=== PATIENT | female | born 1950 | race Caucasian/White ===

== ENCOUNTER 2018-05-13 14:45 | Emergency (ER) | payer OTHER ==
[~2018-05-13] VITALS: Ht 157.5 cm; Wt 77.1 kg
[2018-05-13 15:11] VITALS: BP 146/64
[2018-05-13 15:38] LABS: Basophils # (auto) 0.1 uL; Basophils % (auto) 0.7 % (0.0-2.0); Eosinophils # (auto) 0.1 uL; Eosinophils % (auto) 0.9 % (0.0-7.0); Hematocrit 42.5 % (36.0-46.0); Hemoglobin 14.1 g/dL (12.2-16.2); Lymphocytes # (auto) 1.8 uL; Lymphocytes % (auto) 15.5 % (10.0-50.0); Mean Corpuscular Hemoglobin 28.6 pg (28.0-32.0); Mean Corpuscular Hgb Conc. 33.2 g/dL (32.0-36.0); Mean Corpuscular Volume 86.1 fL (80.0-100.0); Monocytes # (auto) 0.5 uL; Neutrophils # (auto) 9.2 uL; Neutrophils % (auto) 78.9 % (37.0-80.0); Platelet Count (auto) 433 10^3/uL (140-450); Red Blood Cells 4.94 10^6/uL (4.0-5.20); Red Cell Distribution Width 13.9 % (11.8-14.3); White Blood Cell 11.7 10^3/uL (4.4-10.8)
[2018-05-13 16:01] LABS: Albumin 4.1 g/dL (3.4-5.0); BUN/Creatinine Ratio 16.3; Bilirubin, Total 0.9 mg/dL (0.2-1.0); Calcium 8.6 mg/dL (8.5-10.1); Potassium 3.9 mmol/L (3.5-5.1); Total Protein 7.7 g/dL (6.4-8.2)
[2018-05-13 16:10] LABS: Urine Bacteria FEW /hpf (None Seen); Urine Blood TRACE /uL (Negative); Urine Specific Gravity 1.012 (1.001-1.035); Urine WBC 1 /hpf (0 - 5)
== END 2018-05-13 18:39 | disposition home or self-care (01) ==
LOC: ER 14:45
DX: K64.9 Unspecified hemorrhoids (principal); N39.0 Urinary tract infection, site not specified; I10 Essential (primary) hypertension; Z90.710 Acquired absence of both cervix and uterus
CPT/HCPCS: 36415; 80053; 81001; 85025; 93005

== ENCOUNTER 2020-08-08 13:25 | Emergency (ER) | payer OTHER ==
[~2020-08-08] VITALS: Ht 157.5 cm; Wt 65.3 kg
[2020-08-08] MEDS ORDERED: SODIUM CHLORIDE 0.9% 1,000 ML IV ONE (13:30)
[2020-08-08] MEDS ORDERED: MECLIZINE HCL 25 MG TAB PO ONE (13:30)
[2020-08-08 14:17] LABS: Basophils # (auto) 0.1 10 ^3/uL (0-0.2); Basophils % (auto) 0.5 % (0.0-2.0); Eosinophils # (auto) 0.1 10 ^3/uL (0-0.8); Eosinophils % (auto) 0.5 % (0.0-7.0); Hematocrit 41.1 % (36.0-46.0); Hemoglobin 13.8 g/dL (12.2-16.2); Lymphocytes # (auto) 1.3 10 ^3/uL (0.4-5.4); Lymphocytes % (auto) 9.5 % (10.0-50.0); Mean Corpuscular Hemoglobin 29.2 pg (28.0-32.0); Mean Corpuscular Hgb Conc. 33.6 g/dL (32.0-36.0); Mean Corpuscular Volume 86.9 fL (80.0-100.0); Monocytes # (auto) 0.3 10 ^3/uL (0-1.3); Monocytes % (auto) 2.3 % (0.0-12.0); Neutrophils % (auto) 87.2 % (37.0-80.0); Nucleated Red Blood Cells % 0.1 %; Platelet Count (auto) 425 10^3/uL (140-450); Red Blood Cells 4.73 10^6/uL (4.0-5.20); Red Cell Distribution Width 13.2 % (11.8-14.3); White Blood Cell 13.8 10^3/uL (4.4-10.8)
[2020-08-08 14:39] LABS: Albumin 4.2 g/dL (3.4-5.0); Anion Gap 7 (5-15); Blood Urea Nitrogen 22 mg/dL (7-18); Calcium 9.2 mg/dL (8.5-10.1); Carbon Dioxide 24 mmol/L (21-32); Chloride 107 mmol/L (98-107); Glucose 150 mg/dL (74-106); Potassium 4.4 mmol/L (3.5-5.1); Sodium 138 mmol/L (136-145)
[2020-08-08 14:46] LABS: Alanine Aminotransferase 30 U/L (13-56); Alkaline Phosphatase 90 U/L (45-117); Aspartate Aminotransferase 17 U/L (15-37); BUN/Creatinine Ratio 26.2; Bilirubin, Total 0.8 mg/dL (0.2-1.0); GFR African American 86 mL/min; GFR Non-African American 71 mL/min; Total Protein 7.5 g/dL (6.4-8.2)
[2020-08-08 17:09] LABS: Urine Bacteria MANY /hpf (None Seen); Urine Blood Negative /uL (Negative); Urine Hyaline Cast FEW /lpf (0 - 2); Urine Mucus FEW (None Seen); Urine Specific Gravity 1.023 (1.001-1.035); Urine WBC 12 /hpf (0 - 5)
[2020-08-08 17:48] VITALS: BP 136/75
== END 2020-08-08 17:49 | disposition home or self-care (01) ==
LOC: ER 13:25 → EDBD 13:25 → ER 17:49
DX: R42 Dizziness and giddiness (principal); N39.0 Urinary tract infection, site not specified
CPT/HCPCS: 36415; 70450; 71045; 74176; 80053; 81001; 84484; 85025; 93005; 96360; 96361; 99285; J7030; J8597

== ENCOUNTER 2023-12-23 10:19 | Emergency (ER) | payer OTHER ==
[~2023-12-23] VITALS: Ht 157.5 cm; Wt 76.1 kg
[2023-12-23 11:28] LABS: Basophils # (auto) 0.1 10 ^3/uL (0-0.2); Basophils % (auto) 0.8 % (0.0-2.0); Eosinophils # (auto) 0.1 10 ^3/uL (0-0.8); Eosinophils % (auto) 1.7 % (0.0-7.0); Hematocrit 42.3 % (36.0-46.0); Hemoglobin 13.8 g/dL (12.2-16.2); Lymphocytes # (auto) 1.9 10 ^3/uL (0.4-5.4); Lymphocytes % (auto) 29.8 % (10.0-50.0); Mean Corpuscular Hemoglobin 28.4 pg (28.0-32.0); Mean Corpuscular Hgb Conc. 32.7 g/dL (32.0-36.0); Mean Corpuscular Volume 86.7 fL (80.0-100.0); Monocytes # (auto) 0.3 10 ^3/uL (0-1.3); Monocytes % (auto) 4.6 % (0.0-12.0); Neutrophils # (auto) 3.9 10 ^3/uL (1.6-8.6); Neutrophils % (auto) 63.1 % (37.0-80.0); Nucleated Red Blood Cells % 0.2 %; Red Blood Cells 4.87 10^6/uL (4.0-5.20); Red Cell Distribution Width 13.7 % (11.8-14.3); White Blood Cell 6.3 10^3/uL (4.4-10.8)
[2023-12-23 11:32] LABS: Chloride 107 mmol/L (98-107); Potassium 4.1 mmol/L (3.5-5.1); Sodium 141 mmol/L (136-145)
[2023-12-23 11:33] LABS: Anion Gap 7 (5-15); Calcium 9.9 mg/dL (8.5-10.1); Carbon Dioxide 27 mmol/L (20-30)
[2023-12-23 11:38] LABS: BUN/Creatinine Ratio 23.1 (10.0-20.0); Blood Urea Nitrogen 18 mg/dL (9-23); Glucose 103 mg/dL (74-106)
[2023-12-23 16:04] LABS: Urine Bacteria MANY /hpf (None Seen); Urine Blood Negative /uL (Negative); Urine Clarity Clear (Clear); Urine Color Yellow (Yellow); Urine Protein, UAD Negative (Negative); Urine Specific Gravity 1.017 (1.001-1.035); Urine Urobilinogen Normal (Negative); Urine WBC 6 /hpf (0 - 5)
[2023-12-23] MEDS ORDERED: NITR-87 PO (16:22)
[2023-12-23 17:14] VITALS: BP 167/58; PULSE 62; RESP 17; TEMP 97.8; O2SAT 97
== END 2023-12-23 17:16 | disposition home or self-care (01) ==
LOC: ER 10:19
DX: N81.10 Cystocele, unspecified (principal); N39.0 Urinary tract infection, site not specified; I10 Essential (primary) hypertension; Z90.710 Acquired absence of both cervix and uterus
CPT/HCPCS: 36415; 74176; 80048; 81001; 85025

== ENCOUNTER → 2024-07-26 | Outpatient (CLI) | payer OTHER ==
[~2024-07-26] MED LIST: NITR-87 PO
== END | disposition home or self-care (01) ==
LOC: XYW 10:14
PROVIDERS: ATTEND Student in an Organized Health Care Education/Training Program
DX: Z01.810 Encounter for preprocedural cardiovascular examination (principal); I51.89 Other ill-defined heart diseases
CPT/HCPCS: 93306

== ENCOUNTER → 2024-07-28 | Outpatient (CLI) | payer OTHER ==
[~2024-07-28] VITALS: Ht 157.5 cm; Wt 72.6 kg
[2024-07-28] MEDS: REGADENOSON 0.4 MG/5 ML SYRG IV ONE ×2 (12:00)
== END | disposition home or self-care (01) ==
LOC: XYW 09:46
PROVIDERS: ATTEND Student in an Organized Health Care Education/Training Program
DX: Z01.810 Encounter for preprocedural cardiovascular examination (principal); N81.10 Cystocele, unspecified; I10 Essential (primary) hypertension
CPT/HCPCS: 78452; 93017; A9500; J2785

== ENCOUNTER → 2024-08-05 | Outpatient (CLI) | payer OTHER ==
[2024-08-05 10:18] LABS: Alanine Aminotransferase 18 U/L (7-40); Albumin 4.6 g/dL (3.2-4.8); Alkaline Phosphatase 75 U/L (46-116); Anion Gap 6 (5-15); Aspartate Aminotransferase 18 U/L (13-40); Bilirubin, Direct 0.2 mg/dL (<0.3); Bilirubin, Total 0.8 mg/dL (0.2-1.0); Blood Urea Nitrogen 18 mg/dL (9-23); Calcium 9.6 mg/dL (8.7-10.4); Carbon Dioxide 26 mmol/L (20-31); Chloride 110 mmol/L (98-107); Cholesterol 191 mg/dL (< 200); Glucose 104 mg/dL (74-106); HDL Cholesterol 63 mg/dL (40-59); LDL Cholesterol 118 mg/dL (< 100); Potassium 4.2 mmol/L (3.5-5.1); Sodium 142 mmol/L (136-145); Total Protein 7.1 g/dL (5.7-8.2); Triglycerides 93 mg/dL (< 150)
== END | disposition home or self-care (01) ==
LOC: LAB 09:39
PROVIDERS: ATTEND Family Medicine
DX: E78.5 Hyperlipidemia, unspecified (principal); E80.6 Other disorders of bilirubin metabolism; E87.8 Other disorders of electrolyte and fluid balance, not elsewhere classified; R73.09 Other abnormal glucose
CPT/HCPCS: 36415; 80053; 80061; 80076; 83036

== ENCOUNTER 2024-08-19 14:41 | Inpatient (IN) | payer OTHER ==
[~2024-08-19] VITALS: Ht 160 cm; Wt 80.1 kg
[~2024-08-19 14:41] MED LIST changes: +LISI20TA56 PO; -NITR-87 PO
--- NOTE | 2024-08-19 15:31 | DVHINCON2 ---
Date of service: Aug 19, 2024 Referring Physician ER Reason for Consultation Vaginal bleeding Vaginal packing fell out History of Present Illness Patient underwent a transvaginal cystocele repair through outpatient surgery today. She was discharged home with Van catheter to leg bag drainage as well as a vaginal packing. Unfortunately the vaginal packing fell out and patient noted the significant bleeding requiring a transfer to ER by ambulance. She is going to be admitted for observation. She appears to be stable, alert and oriented x4 and has normal vital signs. Allergies: Coded Allergies: Codeine (Verified Allergy, Unknown, 07/28/24) Home Meds Reported Medications Lisinopril (Lisinopril) Unknown Strength Tab, PO DAILY, TAB 08/18/24 Review of Systems Vaginal packing fell out and she has placed a towel between her legs Vital Signs Vital Signs Date Time Temp Pulse Resp B/P (MAP) Pulse Ox O2 Delivery O2 Flow Rate FiO2 08/19/24 15:08 98.0 80 15 127/62 (83) 98 Physical Exam No acute distress Assessment Postop s/p transvaginal cystocele repair Postop vaginal bleeding Plan/Recommendation Admit for observation Check CBC and vitals Van catheter and vaginal packing can be removed on postop day 1. Plan discussed with: Patient, Other LOREE CHARLES MD Aug 19, 2024 15:31
[2024-08-19 15:55] LABS: Basophils # (auto) 0 10 ^3/uL (0-0.2); Basophils % (auto) 0.1 % (0.0-2.0); Eosinophils # (auto) 0 10 ^3/uL (0-0.8); Hematocrit 38.2 % (36.0-46.0); Hemoglobin 13.3 g/dL (12.2-16.2); Lymphocytes # (auto) 0.5 10 ^3/uL (0.4-5.4); Lymphocytes % (auto) 4.9 % (10.0-50.0); Mean Corpuscular Hemoglobin 30.6 pg (28.0-32.0); Mean Corpuscular Hgb Conc. 34.7 g/dL (32.0-36.0); Mean Corpuscular Volume 88.3 fL (80.0-100.0); Monocytes # (auto) 0.1 10 ^3/uL (0-1.3); Monocytes % (auto) 0.6 % (0.0-12.0); Neutrophils # (auto) 10.1 10 ^3/uL (1.6-8.6); Neutrophils % (auto) 94.4 % (37.0-80.0); Platelet Count (auto) 371 10^3/uL (140-450); Red Blood Cells 4.33 10^6/uL (4.0-5.20); Red Cell Distribution Width 13.3 % (11.8-14.3); White Blood Cell 10.7 10^3/uL (4.4-10.8)
--- NOTE | 2024-08-19 16:00 | ED.PDOC ---
General HPI Comments 74y F who presents to the ED via EMS for chief complain to urinary symptoms. EMS states pt earlier this AM had bladder procedure at Urologist procedure and discharged. Pt states she was resting at home after the procedure and states she had episode of vaginal bleeding after she got up from sitting position and states she had a "gush of blood" come out. EMS arrived on scene and states pt had approx 100 cc of blood loss. Pt states bleeding has slowed upon arrival to the ED. Pt in the ED, otherwise denies nausea, vomiting, diarrhea, fever, cough, chills, dysuria, headache or dizziness, chest pain or shortness of breath. Pt denies any other symptoms at this time. 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 Family History Family History: Unknown Social History Smoker: Non-Smoker Alcohol: Denies ETOH Use Drugs: Denies Drug Use Lives In: Home Constitutional: denies: chills, diaphoresis, fatigue, fever, malaise, sweats, weakness, others EENTM: denies: blurred vision, double vision, ear bleeding, ear discharge, ear drainage, ear pain, ear ringing, eye pain, eye redness, hearing loss, mouth pain, mouth swelling, nasal discharge, nose bleeding, nose congestion, nose pain, photophobia, tearing, throat pain, throat swelling, voice changes, others Respiratory: denies: cough, hemoptysis, orthopnea, SOB at rest, shortness of breath, SOB with excertion, stridor, wheezing, others Cardiovascular: denies: chest pain, dizzy spells, diaphoresis, Dyspnea on exertion, edema, irregular heart beat, left arm pain, lightheadedness, palpitations, PND, syncope, others Gastrointestinal: denies: abdomen distended, abdominal pain, blood streaked bowels, constipated, diarrhea, dysphagia, difficulty swallowing, hematemesis, melena, nausea, poor appetite, poor fluid intake, rectal bleeding, rectal pain, vomiting, others Genitourinary: reports: abnormal vagina bleeding; denies: burning, dyspareunia, dysuria, flank pain, frequency, hematuria, incontinence, pain, , vagina discharge, urgency, others Neurological: denies: dizziness, fainting, headache, left sided numbness, left sided weakness, numbness, paresthesia, pre-existing deficit, right sided numbness, right sided weakness, seizure, speech problems, tingling, tremors, weakness, others Musculoskeletal: denies: back pain, gout, joint pain, joint swelling, muscle pain, muscle stiffness, neck pain, others Integumetry: denies: bruises, change in color, change in hair/nails, dryness, laceration, lesions, lumps, rash, wounds, others Allergic/Immunocompromised: denies: Difficulty Healing, Frequent Infections, Hives, Itching, others Hematologic/Lymphatic: denies: anemia, blood clots, easy bleeding, easy bruising, swollen glands, others Endocrine: denies: excessive hunger, excessive sweating, excessive thirst, excessive urination, flushing, intolerance to cold, intolerance to heat, unexplained weight gain, unexplained weight loss, others Psychiatric: denies: anxiety, bipolar disorder, depression, hopeless, panic disorder, schizophrenia, sleepless, suicidal, others All Other Systems: Reviewed and Negative Physical Exam General Appearance: Moderate Distress HEENT: Normal ENT Inspection, Pharynx Normal, TMs Normal Neck: Full Range of Motion, Non-Tender, Normal, Normal Inspection Respiratory: Chest Non-Tender, Lungs Clear, No Accessory Muscle Use, No Respiratory Distress, Normal Breath Sounds Cardiovascular: No Edema, No JVD, No Murmur, No Gallop, Normal Peripheral Pulses, Regular Rate/Rhythm Breast Exam: Deferred Gastrointestinal: No Organomegaly, Non Tender, No Pulsatile Mass, Normal Bowel Sounds, Soft Genitalia: Deferred Pelvic: Deferred Rectal: Deferred Extremities: No calf tenderness, Normal capillary refill, Normal inspection, Normal range of motion, Non-tender, No pedal edema Musculoskeletal : Apperance: Normal Neurologic: Alert Cerebellar Function: NOT DONE Reflexes: NOT DONE Skin: Dry, Normal Color, Warm Peripheral Pulses: 3+ Radial (R), 3+ Radial (L) Lymphatic: No Adenopathy Was a procedure done? Was a procedure done?: No Differential Diagnosis Kidney stone (Female): Musculoskeletal pain, Urinary obstruction, Urolithiasis Urinary Problem (Female): PID, Post-op complication, Urinary retention, UTI X-Ray, Labs, Meds, VS Vital Signs Date Time Temp Pulse Resp B/P (MAP) Pulse Ox O2 Delivery O2 Flow Rate FiO2 08/19/24 15:08 98.0 80 15 127/62 (83) 98 Lab Test 08/19/24 15:07 Range/Units White Blood Count 10.7 # 4.4-10.8 10^3/uL Red Blood Count 4.33 4.0-5.20 10^6/uL Hemoglobin 13.3 12.2-16.2 g/dL Hematocrit 38.2 36.0-46.0 % Mean Corpuscular Volume 88.3 80.0-100.0 fL Mean Corpuscular Hemoglobin 30.6 28.0-32.0 pg Mean Corpuscular Hemoglobin Concent 34.7 32.0-36.0 g/dL Red Cell Distribution Width 13.3 11.8-14.3 % Platelet Count 371 140-450 10^3/uL Mean Platelet Volume 7.8 6.9-10.8 fL Neutrophils (%) (Auto) 94.4 H 37.0-80.0 % Lymphocytes (%) (Auto) 4.9 L 10.0-50.0 % Monocytes (%) (Auto) 0.6 0.0-12.0 % Eosinophils (%) (Auto) 0.0 0.0-7.0 % Basophils (%) (Auto) 0.1 0.0-2.0 % Neutrophils # (Auto) 10.1 H 1.6-8.6 10 ^3/uL Lymphocytes # (Auto) 0.5 0.4-5.4 10 ^3/uL Monocytes # (Auto) 0.1 0-1.3 10 ^3/uL Eosinophils # (Auto) 0 0-0.8 10 ^3/uL Basophils # (Auto) 0 0-0.2 10 ^3/uL Nucleated Red Blood Cells 0.0 % Sodium Level Pending Potassium Level Pending Chloride Level Pending Carbon Dioxide Level Pending Anion Gap Pending Blood Urea Nitrogen Pending Creatinine Pending Glomerular Filtration Rate Calc Pending BUN/Creatinine Ratio Pending Serum Glucose Pending Calcium Level Pending Troponin I High Sensitivity Pending Patient alert. Had a bladder procedure this morning. Started to bleed after the procedure when she got home. Vitals stable. Bleeding controlled. Urology consultation. Hemoglobin within normal limits. Reviewed her previous visit. Family wanted the patient to be observed overnight. Explained to the patient treatment plan. Continue environmental monitoring specialist. EKG reviewed does not show any acute process. Time of 1ST Reevaluation: 16:30 Reevaluation 1ST: Unchanged Patient Education/Counseling: Diagnosis, Treatment Family Education/Counseling: No Family Present Departure 1 Departure Time of Disposition: 16:03 Impression: Primary Impression: Vaginal bleeding Disposition: 01 HOME / SELF CARE / HOMELESS Condition: Good Discharged With: Self Critical Care Note Critical Care Time?: Yes (45 min-critical care time only) Stability Stability form required: No Heart Score Heart Score: Heart Score Response (Comments) Value History Slightly Suspicious 0 EKG N/A 0 Age >65 2 Risk Factors 1 or 2 risk factors 1 Troponin Normal limit 0 Total 3 I personally scribed for MONTANA RAYA MD ([email or web address]) on 08/19/24 at 16:00. Electronically submitted by Toyin Herrera ([email or web address]). MONTANA RAYA MD Aug 19, 2024 16:00
[2024-08-19] MEDS: SODIUM CHLORIDE 0.9% 1,000 ML IV ONE (16:05)
[2024-08-19 16:08] LABS: Chloride 108 mmol/L (98-107); Potassium 4.2 mmol/L (3.5-5.1); Sodium 141 mmol/L (136-145)
[2024-08-19 16:09] LABS: Anion Gap 6 (5-15); Calcium 9.6 mg/dL (8.7-10.4); Carbon Dioxide 27 mmol/L (20-31)
[2024-08-19 16:14] LABS: BUN/Creatinine Ratio 24.1 (10.0-20.0); Blood Urea Nitrogen 20 mg/dL (9-23); Glucose 144 mg/dL (74-106)
[2024-08-19 18:30] VITALS: PULSE 82; RESP 12; O2SAT 93
[2024-08-19 19:30] VITALS: PULSE 82; RESP 12; O2SAT 93
[2024-08-19] MEDS: NEOMYCIN-BACITRACIN-POLYM UNITDOSE PKG TOP OINT TOP ONE (20:02)
--- NOTE | 2024-08-19 20:22 | DVHPN2 ---
Progress Note - Dictate Date Seen: Aug 19, 2024 Has the PT tested + for MRSA If YES, has PT been informed?: No Medical Necessity Reason Pt with a Central, PICC or Fol: Yes The following are medically ne: Van Catheter Medical Necessity Reason vaginal bleeding postop Vaginal packing fell out at home. It has not been replaced. Subjective Patient comfortable. Reports pressure sensation in her vaginal area. vital signs Vital Sign Date Time Temp Pulse Resp B/P (MAP) Pulse Ox O2 Delivery O2 Flow Rate FiO2 08/19/24 18:30 98.4 82 12 145/61 (89) 93 98.4 08/19/24 18:30 Room Air* 0 21 objective Pelvic exam: Large blood clot was removed. No active bleeding noted. Vaginal packing was replaced using partial Kerlix roll. Van catheter in place with clear yellow urine. No gross hematuria laboratory and microbiology Laboratory Tests 08/19/24 15:07 Test 08/19/24 15:07 Range/Units Serum Glucose 144 H 74-106 mg/dL Assessment/Plan Postop s/p transvaginal cystocele repair Postop vaginal bleeding Plan discussed with: Patient, Other LOREE CHARLES MD Aug 19, 2024 20:22
[2024-08-19] MEDS ORDERED: ONDANSETRON HCL 4 MG/2 ML VIAL IV PRN (21:00)
[2024-08-19] MEDS ORDERED: MORPHINE SULFATE INJ 2 MG/ml SYRG IV PRN (21:00)
[2024-08-19] MEDS ORDERED: HYDROcodone-ACET 5/325MG TAB PO PRN (21:00)
[2024-08-19] MEDS ORDERED: NITROGLYCERIN 0.4 MG SL TAB SL PRN (21:00)
[2024-08-19] MEDS: SODIUM CHLOR 0.9% PF (SALINE LOCK) 10ML VIAL/SYR IV SCH (21:32)
--- NOTE | 2024-08-19 22:41 | DVHHPRES ---
History of Present Illness Resident Creating Document: LESA GUZMÁN RESIDENT History of Present Illness This is a 74-year-old female with a past medical history of osteoarthritis, type 2 diabetes mellitus, vaginal prolapse secondary to grade 3 cystocele underwent transvaginal cystocele repair/sacral spinous ligament fixation on 08/19/[address] Blandon. Surgery was uneventful and patient was discharged on the same day home and later developed vaginal bleeding due to dislodgement of the vaginal pack which prompted this visit. Patient also complains of dizziness, 2 episodes of vomiting, headache and knee pain. Dr. Blandon evaluated the patient in the ER repositioned the vaginal pack and also placement of Van catheter and advised to remove the pack and the Van on postoperative day 1. Past Medical History Osteoarthritis, type 2 diabetes mellitus, cystocele Past Surgical History Hysterectomy, repair of cystocele Family History Heart disease runs in the family Smoke: No ALCOHOL: none Drugs: None Lives: with Family Review of Systems Constitutional: No: Fever, Chills, Sweats, Weakness, Malaise, Other Eyes: No: Pain, Vision change, Conjunctivae inflammation, Eyelid inflammation, Other, Redness ENT: No: Ear pain, Ear discharge, Nose pain, Nose discharge, Nose congestion, Mouth pain, Mouth swelling, Throat pain, Throat swelling, Other Respiratory: No: Cough, Dry, Shortness of breath, SOB with excertion, Wheezing, Hemoptysis, Pleuritic Pain, Sputum, Wheezing, Other Cardiovascular: Lt Headedness; No: Chest Pain, Palpitations, Orthopnea, Paroxysmal Noc. Dyspnea, Edema, Other Gastrointestinal: No: Nausea, Vomiting, Abdominal Pain, Diarrhea, Constipation, Melena, Hematochezia, Other Genitourinary: No Dysuria, No Frequency, No Incontinence, No Hematuria, No Retention, No Other Musculoskeletal: No: other, neck pain, shoulder pain, arm pain, back pain, hand pain, leg pain, foot pain Skin: No: Rash, Lesions, Jaundice, Bruising, Other Neurological: No: Weakness, Numbness, Incoordination, Change in speech, Confusion, Seizures, Other Allergies: Coded Allergies: Codeine (Verified Allergy, Unknown, 07/28/24) Medications Current Medications Medications Dose Ordered Sig/Brayan Route Start Time Stop Time Status Last Admin Dose Admin Sodium Chloride 10 ml Q8HR IV 08/19/24 22:00 08/19/24 21:32 10 ML Acetaminophen 325 mg Q4HP PRN PO 08/19/24 21:00 Acetaminophen/ Hydrocodone Bitart 1 tab Q4HP PRN PO 08/19/24 21:00 Ondansetron HCl 4 mg Q4HP PRN IV 08/19/24 21:00 Nitroglycerin 0.4 mg Q5MINP PRN SL 08/19/24 21:00 Morphine Sulfate 2 mg Q30M PRN IV 08/19/24 21:00 Exam Vital Signs Vital Signs Date Time Temp Pulse Resp B/P (MAP) Pulse Ox O2 Delivery O2 Flow Rate FiO2 08/19/24 21:46 89 08/19/24 19:30 12 93 Room Air* 0 21 08/19/24 19:30 98.2 127/64 (85) 98.2 Exam Physical examination: General Appearance: Alert, Oriented X3, Cooperative, No acute distress HEENT: Atraumatic, PERRLA, EOMI, Mucous membrane moist/pink Respiratory: Clear to auscultation, Normal air movement Cardiovascular: Regular rate, Normal S1, Normal S2, No murmurs, no chest wall tenderness Abdominal: Normal bowel sounds, Soft, No tenderness, No hepatospenomegaly, No masses Extremities: No clubbing, No cyanosis, No edema, Normal pulses, No tenderness/swelling Skin: No rashes, No breakdown, No significant lesion Neuro: Normal speech, Strength at 5/5 X4 ext, Normal tone, Sensation intact. Psych/Mental Status: Mental status NL, Mood NL Labs/Xrays Labs Test 08/19/24 15:07 Range/Units White Blood Count 10.7 # 4.4-10.8 10^3/uL Red Blood Count 4.33 4.0-5.20 10^6/uL Hemoglobin 13.3 12.2-16.2 g/dL Hematocrit 38.2 36.0-46.0 % Mean Corpuscular Volume 88.3 80.0-100.0 fL Mean Corpuscular Hemoglobin 30.6 28.0-32.0 pg Mean Corpuscular Hemoglobin Concent 34.7 32.0-36.0 g/dL Red Cell Distribution Width 13.3 11.8-14.3 % Platelet Count 371 140-450 10^3/uL Mean Platelet Volume 7.8 6.9-10.8 fL Neutrophils (%) (Auto) 94.4 H 37.0-80.0 % Lymphocytes (%) (Auto) 4.9 L 10.0-50.0 % Monocytes (%) (Auto) 0.6 0.0-12.0 % Eosinophils (%) (Auto) 0.0 0.0-7.0 % Basophils (%) (Auto) 0.1 0.0-2.0 % Neutrophils # (Auto) 10.1 H 1.6-8.6 10 ^3/uL Lymphocytes # (Auto) 0.5 0.4-5.4 10 ^3/uL Monocytes # (Auto) 0.1 0-1.3 10 ^3/uL Eosinophils # (Auto) 0 0-0.8 10 ^3/uL Basophils # (Auto) 0 0-0.2 10 ^3/uL Nucleated Red Blood Cells 0.0 % Sodium Level 141 136-145 mmol/L Potassium Level 4.2 3.5-5.1 mmol/L Chloride Level 108 H 98-107 mmol/L Carbon Dioxide Level 27 20-31 mmol/L Anion Gap 6 5-15 Blood Urea Nitrogen 20 9-23 mg/dL Creatinine 0.83 0.550-1.02 mg/dL Glomerular Filtration Rate Calc 73 >90 mL/min BUN/Creatinine Ratio 24.1 H 10.0-20.0 Serum Glucose 144 H 74-106 mg/dL Calcium Level 9.6 8.7-10.4 mg/dL Troponin I High Sensitivity 11 </=34 ng/L Assessment/Plan Assessment/Plan Assessment and plan: # Postoperative vaginal pain bleeding, s/p transvaginal cystocele repair - Patient developed bleeding within 24 hours after surgery due to dislodgement of vaginal pack - Dr. Blandon evaluated the patient in the ER and repositioned the vaginal pack and placed Van catheter and the urine color was normal - Was admitted for observation and monitoring the vital sign and H&H - Dr. Blandon advised to remove the Van and the vaginal pack on postoperative day 1. - IV normal saline at 75 mL/hour Plan of treatment discussed with Dr. Brooks Plan discussed with: Patient, Other My Orders Orders - LESA GUZMÁN RESIDENT Procedure Category Date Status Time Admit ADMIT 08/19/24 Transmitted 20:50 Code Status CODE 08/19/24 Transmitted 20:50 Sodium Chloride Lock PHA 08/19/24 In Process (Saline Lock Ns) 22:00 Oxygen Per Hour RT 08/19/24 Transmitted 20:50 Acetaminophen Tablet PHA 08/19/24 In Process (Tylenol Tablet) 21:00 Hydrocodone-Acet PHA 08/19/24 In Process 5/325mg Tab ([facility] 21:00 Ondansetron Hcl PHA 08/19/24 In Process (Zofran) 21:00 Complete Blood Count LAB 08/20/24 Verified 04:00 Comprehensive LAB 08/20/24 Verified Metabolic Panel 04:00 Npo (Nothing By DIET 08/20/24 Transmitted Mouth) Diet Breakfast Nitroglycerin PHA 08/19/24 In Process Sublingual (Ntrostat 21:00 Morphine Sulfate PHA 08/19/24 In Process Injection 21:00 Oxygen By Nasal RT 08/19/24 Transmitted Cannula 20:50 Stat Ekg For Chest CORNELIA 08/19/24 In Process Pain 20:50 Notify Of Changes CORNELIA 08/19/24 In Process From Base 20:50 Technical Sales Support Specialist For [facility] 08/19/24 In Process 24 Hours 20:50 Emergency Dysrhythmia [facility] 08/19/24 In Process Protocol 20:50 Rhythm Strips Once CORNELIA 08/19/24 In Process Every Shift 20:50 B-Type Natriuretic LAB 08/19/24 Transmitted Peptide 22:37 Thyroid Stimulating LAB 08/19/24 Transmitted Hormone 22:37 LESA GUZMÁN RESIDENT Aug 19, 2024 22:41
[2024-08-19 23:17] VITALS: BP 115/55; PULSE 82; RESP 18; TEMP 98; O2SAT 95
[2024-08-20 01:00] VITALS: BP 126/64; PULSE 80; RESP 18; TEMP 98; O2SAT 99
[2024-08-20] MEDS: SODIUM CHLORIDE 0.9% 1,000 ML IV SCH (04:30)
[2024-08-20 05:00] VITALS: BP 119/48; PULSE 77; RESP 19; TEMP 97.9; O2SAT 98
[2024-08-20 06:34] LABS: Basophils # (auto) 0 10 ^3/uL (0-0.2); Basophils % (auto) 0.1 % (0.0-2.0); Eosinophils # (auto) 0 10 ^3/uL (0-0.8); Eosinophils % (auto) 0.1 % (0.0-7.0); Hemoglobin 11.2 g/dL (12.2-16.2); Lymphocytes # (auto) 1.8 10 ^3/uL (0.4-5.4); Lymphocytes % (auto) 17.2 % (10.0-50.0); Mean Corpuscular Hgb Conc. 33.8 g/dL (32.0-36.0); Mean Corpuscular Volume 88.8 fL (80.0-100.0); Monocytes # (auto) 0.7 10 ^3/uL (0-1.3); Monocytes % (auto) 6.2 % (0.0-12.0); Neutrophils # (auto) 8.1 10 ^3/uL (1.6-8.6); Neutrophils % (auto) 76.4 % (37.0-80.0); Platelet Count (auto) 346 10^3/uL (140-450); Red Blood Cells 3.72 10^6/uL (4.0-5.20); Red Cell Distribution Width 13.3 % (11.8-14.3); White Blood Cell 10.6 10^3/uL (4.4-10.8)
[2024-08-20 06:41] LABS: Alanine Aminotransferase 16 U/L (7-40); Albumin 3.6 g/dL (3.2-4.8); Alkaline Phosphatase 62 U/L (46-116); Anion Gap 5 (5-15); Aspartate Aminotransferase 13 U/L (13-40); BUN/Creatinine Ratio 23.5 (10.0-20.0); Bilirubin, Total 1.2 mg/dL (0.2-1.0); Blood Urea Nitrogen 16 mg/dL (9-23); Calcium 8.9 mg/dL (8.7-10.4); Carbon Dioxide 26 mmol/L (20-31); Chloride 111 mmol/L (98-107); Glucose 99 mg/dL (74-106); Sodium 142 mmol/L (136-145)
[2024-08-20 06:42] LABS: Total Protein 5.5 g/dL (5.7-8.2)
--- NOTE | 2024-08-20 07:03 | DVHPN2 ---
Progress Note - Dictate Date Seen: Aug 20, 2024 Has the PT tested + for MRSA If YES, has PT been informed?: No Medical Necessity Reason Pt with a Central, PICC or Fol: Yes The following are medically ne: Van Catheter Medical Necessity Reason POD#1 s/p cystocelectomy Admitted for vaginal bleeding Subjective Patient comfortable. No pelvic pain. vital signs Vital Sign Date Time Temp Pulse Resp B/P (MAP) Pulse Ox O2 Delivery O2 Flow Rate FiO2 08/20/24 00:35 Room Air* 0 21 08/19/24 23:17 98.0 82 18 115/55 (75) 95 98.0 Total Intake and Output 08/19/24 08/19/24 08/20/24 15:00 23:00 07:00 Intake Total 1000 ml 100 ml Output Total 300 ml Balance 1000 ml -200 ml medications Current Medications Medications Dose Ordered Sig/Brayan Route Start Time Stop Time Status Last Admin Dose Admin Sodium Chloride 10 ml Q8HR IV 08/19/24 22:00 08/20/24 06:10 10 ML Acetaminophen 325 mg Q4HP PRN PO 08/19/24 21:00 Acetaminophen/ Hydrocodone Bitart 1 tab Q4HP PRN PO 08/19/24 21:00 Ondansetron HCl 4 mg Q4HP PRN IV 08/19/24 21:00 Nitroglycerin 0.4 mg Q5MINP PRN SL 08/19/24 21:00 Morphine Sulfate 2 mg Q30M PRN IV 08/19/24 21:00 Sodium Chloride 1,000 ml @ 75 mls/hr [id number] IV 08/20/24 04:30 08/20/24 04:30 75 MLS/HR objective Pelvic exam: vaginal packing removed. No active vaginal bleeding noted. laboratory and microbiology Laboratory Tests 08/20/24 06:01 Test 08/20/24 06:01 Range/Units Serum Glucose 99 74-106 mg/dL Problem List Postop vaginal bleeding Assessment/Plan Postop s/p transvaginal cystocele repair Postop vaginal bleeding- stable Vaginal packing removed. Van in place. Will leave for another day. Plan discussed with: Patient LOREE CHARLES MD Aug 20, 2024 07:03
[2024-08-20 08:00] VITALS: PULSE 72; O2SAT 94
[2024-08-20 08:46] VITALS: BP 121/58; PULSE 85; RESP 18; TEMP 98; O2SAT 94
[2024-08-20] MEDS: ACETAMINOPHEN 325 MG TAB PO PRN (10:55)
--- NOTE | 2024-08-20 12:41 | DVHDSRES ---
Discharge Summary Date of Admission Resident Creating Document: LESA GUZMÁN RESIDENT Aug 19, 2024 at 20:50 Date of Discharge: Aug 20, 2024 Admitting Diagnosis Postoperative vaginal bleeding Labs/Diagnostic Data: Laboratory Results Test 08/20/24 06:01 08/19/24 15:07 White Blood Count 10.6 10^3/uL (4.4-10.8) Red Blood Count 3.72 10^6/uL (4.0-5.20) Hemoglobin 11.2 g/dL (12.2-16.2) Hematocrit 33.0 % (36.0-46.0) Mean Corpuscular Volume 88.8 fL (80.0-100.0) Mean Corpuscular Hemoglobin 30.0 pg (28.0-32.0) Mean Corpuscular Hemoglobin Concent 33.8 g/dL (32.0-36.0) Red Cell Distribution Width 13.3 % (11.8-14.3) Platelet Count 346 10^3/uL (140-450) Mean Platelet Volume 7.7 fL (6.9-10.8) Neutrophils (%) (Auto) 76.4 % (37.0-80.0) Lymphocytes (%) (Auto) 17.2 % (10.0-50.0) Monocytes (%) (Auto) 6.2 % (0.0-12.0) Eosinophils (%) (Auto) 0.1 % (0.0-7.0) Basophils (%) (Auto) 0.1 % (0.0-2.0) Neutrophils # (Auto) 8.1 10 ^3/uL (1.6-8.6) Lymphocytes # (Auto) 1.8 10 ^3/uL (0.4-5.4) Monocytes # (Auto) 0.7 10 ^3/uL (0-1.3) Eosinophils # (Auto) 0 10 ^3/uL (0-0.8) Basophils # (Auto) 0 10 ^3/uL (0-0.2) Nucleated Red Blood Cells 0.0 % Sodium Level 142 mmol/L (136-145) Potassium Level 4.0 mmol/L (3.5-5.1) Chloride Level 111 mmol/L (98-107) Carbon Dioxide Level 26 mmol/L (20-31) Anion Gap 5 (5-15) Blood Urea Nitrogen 16 mg/dL (9-23) Creatinine 0.68 mg/dL (0.550-1.02) Glomerular Filtration Rate Calc 90 mL/min (>90) BUN/Creatinine Ratio 23.5 (10.0-20.0) Serum Glucose 99 mg/dL (74-106) Calcium Level 8.9 mg/dL (8.7-10.4) Total Bilirubin 1.2 mg/dL (0.2-1.0) Aspartate Amino Transferase (AST) 13 U/L (13-40) Alanine Aminotransferase (ALT) 16 U/L (7-40) Alkaline Phosphatase 62 U/L (46-116) Total Protein 5.5 g/dL (5.7-8.2) Albumin 3.6 g/dL (3.2-4.8) Troponin I High Sensitivity 11 ng/L (</=34) B-Type Natriuretic Peptide 114.41 pg/mL (0-100) Thyroid Stimulating Hormone (TSH) 0.76 uIU/mL (0.55-4.78) Other Laboratory Tests 08/20/24 06:01 Brief Hx & Hospital Course: This is a 74-year-old female with a past medical history of osteoarthritis, type 2 diabetes mellitus, vaginal prolapse secondary to grade 3 cystocele underwent transvaginal cystocele repair/sacral spinous ligament fixation on 08/19/[address] Blandon. Surgery was uneventful and patient was discharged on the same day home and later developed vaginal bleeding due to dislodgement of the vaginal pack which prompted this visit. Patient also complains of dizziness, 2 episodes of vomiting, headache and knee pain. Dr. Blandon evaluated the patient in the ER repositioned the vaginal pack and also placement of Van catheter and advised to remove the pack and the Van on postoperative day 1. No vaginal bleeding noted today. Patient is hemodynamically stable. Denied any complaint. Patient was seen by Dr. Blandon today and recommended to discharge patient with the police and follow up with him on Friday for Van's removal and further care. Patient was advised to resume home medication including antibiotic prescribed by Dr. Blandon. PMH-osteoarthritis, type 2 diabetes mellitus, vaginal prolapse secondary to grade 3 cystocele underwent transvaginal cystocele repair/sacral spinous ligament fixation on 08/19/[address] Blandon PSH- Allergy- Personal History/ Social History- Patient was seen today at the bedside. Patient Cardiovascular- deny acute chest pain or shortness of breath or cough or palpitation Respiratory- denies cough or short of breath or wheezing Gastrointestinal- denies any rectal bleeding, nausea or vomiting Musculoskeletal-denies acute joint swelling or tenderness or redness Neurological- denies acute dysarthria, dysphagia, change in vision Psychiatry- denies depression or SI or HI Skin- denies acute rash or purpura General Appearance: Alert, Oriented X3, Cooperative, No acute distress HEENT: Atraumatic, PERRLA, EOMI, Mucous membrane moist/pink Respiratory: Clear to auscultation, Normal air movement Cardiovascular: Regular rate, Normal S1, Normal S2, No murmurs, no chest wall tenderness Abdominal: Normal bowel sounds, Soft, No tenderness, No hepatospenomegaly, No masses Extremities: No clubbing, No cyanosis, No edema, Normal pulses, No tenderness/swelling Skin: No rashes, No breakdown, No significant lesion Neuro: Normal speech, Strength at 5/5 X4 ext, Normal tone, Sensation intact. Psych/Mental Status: Mental status NL, Mood NL Condition at Discharge: Stable Final Diagnosis/Problems List Vaginal bleeding Postop s/p transvaginal cystocele repair h/o vaginal prolapse secondary to grade 3 cystocele osteoarthritis, type 2 diabetes mellitus, Discharge Disposition: Home Discharge Instruct/Medications Diet: Consistent carbohydrate Activity: Light activity Follow Up/Referral: Please follow up with Dr. Blandon on Friday for catheter removal and further follow up Medications: With the resume home medications and antibiotics as per Dr. Blandon prescribed Discharge Statement: "Patient was advised to return to the ER or call 911 if any headaches, dizziness, shortness of breath, chest pain, abdominal pain, bleeding, fevers, or worsening of medical condition. Patient was counseled about treatment plan, medications, possible side effects, patientverbalized understanding. All questions were answered to the best of my ability. This discharge took greater then 30 minutes in planning, reviewing documentation, counseling the patient, and discussing with other team members." ASSESSMENT ASSESSMENT Assessment Vaginal bleeding Postop s/p transvaginal cystocele repair vaginal prolapse secondary to grade 3 cystocele osteoarthritis, type 2 diabetes mellitus, Date of Service: Aug 20, 2024 Billing Provider: SAHIL BLAIR MD Common Visit Codes: 01789-PAE/OBS DISCH DAY >30min CARISA SCHMITZ RESIDENT Aug 20, 2024 12:41 SAHIL BLAIR MD Aug 24, 2024 17:28
[2024-08-20 13:00] VITALS: BP 115/60; PULSE 77; RESP 16; TEMP 98.2; O2SAT 98
[2024-08-20 14:10] VITALS: TEMP 36.8
== END 2024-08-20 16:10 | disposition home or self-care (01) | DRG 921 ==
LOC: ER 14:41 → EDBD 14:41 → TELE 20:50 → TELE-WESTW 20:52
PROVIDERS: ADMIT Internal Medicine; ATTEND Internal Medicine
DX: N99.820 Postprocedural hemorrhage of a genitourinary system organ or structure following a genitourinary system procedure (principal); I10 Essential (primary) hypertension; M19.09 Primary osteoarthritis, other specified site; E11.9 Type 2 diabetes mellitus without complications; Z79.899 Other long term (current) drug therapy; Z79.4 Long term (current) use of insulin; Y83.8 Other surgical procedures as the cause of abnormal reaction of the patient, or of later complication, without mention of misadventure at the time of the procedure; Y92.89 Other specified places as the place of occurrence of the external cause
CPT/HCPCS: 36415; 80048; 80053; 81001; 83880; 84443; 84484; 85025; 85610; 85730; 87086; 96360; 99291; G0378; J1100; J1885; J2003; J2405; J2704

== ENCOUNTER → 2024-09-03 | Outpatient (CLI) | payer OTHER ==
[2024-09-03 10:33] LABS: Lymphocytes # (auto) 2.1 10 ^3/uL (0.4-5.4); Monocytes # (auto) 0.5 10 ^3/uL (0-1.3); Neutrophils # (auto) 4.7 10 ^3/uL (1.6-8.6)
[2024-09-03 10:35] LABS: Basophils # (auto) 0.1 10 ^3/uL (0-0.2); Basophils % (auto) 0.7 % (0.0-2.0); Eosinophils # (auto) 0.3 10 ^3/uL (0-0.8); Eosinophils % (auto) 3.9 % (0.0-7.0); Hematocrit 37.7 % (36.0-46.0); Hemoglobin 12.8 g/dL (12.2-16.2); Lymphocytes % (auto) 27.5 % (10.0-50.0); Mean Corpuscular Volume 88.4 fL (80.0-100.0); Monocytes % (auto) 6.3 % (0.0-12.0); Neutrophils % (auto) 61.6 % (37.0-80.0); Platelet Count (auto) 517 10^3/uL (140-450); Red Blood Cells 4.26 10^6/uL (4.0-5.20); Red Cell Distribution Width 13.7 % (11.8-14.3); White Blood Cell 7.7 10^3/uL (4.4-10.8)
[2024-09-03 10:59] LABS: % Iron Saturation 20.3 % (15-50)
== END | disposition home or self-care (01) ==
LOC: LAB 09:29
PROVIDERS: ATTEND Family Medicine
DX: D62 Acute posthemorrhagic anemia (principal); N99.820 Postprocedural hemorrhage of a genitourinary system organ or structure following a genitourinary system procedure
CPT/HCPCS: 36415; 83540; 83550; 85025

== ENCOUNTER → 2025-01-19 | Outpatient (CLI) | payer OTHER ==
[2025-01-19 09:53] LABS: Urine Bacteria FEW /hpf (None Seen); Urine Blood Negative /uL (Negative); Urine Clarity Clear (Clear); Urine Color Light-Yellow (Yellow); Urine Protein, UAD Negative (Negative); Urine Specific Gravity 1.017 (1.001-1.035); Urine Squamous Epithelial Cell FEW /hpf (<5); Urine Urobilinogen Normal (Negative); Urine WBC 4 /HPF (0-5); Urine pH 5.5 (5.0-9.0)
[2025-01-19 10:00] LABS: Basophils # (auto) 0 10 ^3/uL (0-0.2); Basophils % (auto) 0.8 % (0.0-2.0); Eosinophils # (auto) 0.1 10 ^3/uL (0-0.8); Eosinophils % (auto) 2.4 % (0.0-7.0); Hemoglobin 12.7 g/dL (12.2-16.2); Lymphocytes # (auto) 2.1 10 ^3/uL (0.4-5.4); Lymphocytes % (auto) 35.7 % (10.0-50.0); Mean Corpuscular Hemoglobin 28.4 pg (28.0-32.0); Mean Corpuscular Hgb Conc. 33.4 g/dL (32.0-36.0); Mean Corpuscular Volume 85.1 fL (80.0-100.0); Monocytes # (auto) 0.3 10 ^3/uL (0-1.3); Monocytes % (auto) 5.5 % (0.0-12.0); Neutrophils # (auto) 3.3 10 ^3/uL (1.6-8.6); Neutrophils % (auto) 55.6 % (37.0-80.0); Nucleated Red Blood Cells % 0.1 %; Platelet Count (auto) 358 10^3/uL (140-450); Red Blood Cells 4.47 10^6/uL (4.0-5.20); Red Cell Distribution Width 15.2 % (11.8-14.3); White Blood Cell 5.9 10^3/uL (4.4-10.8)
[2025-01-19 10:05] LABS: Alanine Aminotransferase 19 U/L (7-40); Albumin 4.6 g/dL (3.2-4.8); Alkaline Phosphatase 79 U/L (46-116); Anion Gap 8 (5-15); Aspartate Aminotransferase 16 U/L (13-40); BUN/Creatinine Ratio 28.4 (10.0-20.0); Calcium 9.9 mg/dL (8.7-10.4); Carbon Dioxide 25 mmol/L (20-31); Glucose 100 mg/dL (74-106); Potassium 4.2 mmol/L (3.5-5.1); Sodium 141 mmol/L (136-145); Uric Acid 5.7 mg/dL (3.1-7.8)
[2025-01-19 10:42] LABS: Blood Urea Nitrogen 23 mg/dL (9-23); Chloride 108 mmol/L (98-107)
[2025-01-20 16:53] LABS: Triglycerides 74 mg/dL (< 150)
[2025-01-20 16:55] LABS: Cholesterol 191 mg/dL (< 200)
[2025-01-20 17:04] LABS: HDL Cholesterol 61 mg/dL (40-59); LDL Cholesterol 117 mg/dL (< 100)
== END | disposition home or self-care (01) ==
LOC: LAB 09:10
PROVIDERS: ATTEND Family Medicine
DX: Z12.11 Encounter for screening for malignant neoplasm of colon (principal); I10 Essential (primary) hypertension; R73.09 Other abnormal glucose; R39.81 Functional urinary incontinence; Z00.01 Encounter for general adult medical examination with abnormal findings; N30.90 Cystitis, unspecified without hematuria; E78.5 Hyperlipidemia, unspecified; E66.09 Other obesity due to excess calories
CPT/HCPCS: 36415; 80053; 80061; 81001; 82270; 83036; 84443; 84550; 85025

== ENCOUNTER 2025-05-17 09:33 | Outpatient (CLI) | payer OTHER ==
[2025-05-17 10:23] LABS: Anion Gap 7 (5-15); Carbon Dioxide 25 mmol/L (20-31); Sodium 141 mmol/L (136-145)
[2025-05-17 10:24] LABS: Calcium 9.9 mg/dL (8.7-10.4)
[2025-05-17 10:29] LABS: BUN/Creatinine Ratio 28.2 (10.0-20.0); Glucose 105 mg/dL (74-106)
[2025-05-17 10:47] LABS: Microalb/Creat Ratio, Urine 7.00
[2025-05-17 10:51] LABS: Blood Urea Nitrogen 24 mg/dL (9-23); Chloride 109 mmol/L (98-107); Potassium 5.4 mmol/L (3.5-5.1)
== END 2025-05-17 17:00 | disposition home or self-care (01) ==
LOC: LAB 09:33
PROVIDERS: ATTEND Family Medicine
DX: E11.9 Type 2 diabetes mellitus without complications (principal)
CPT/HCPCS: 36415; 80048; 82043; 82570

== ENCOUNTER 2025-06-09 07:53 | Outpatient (CLI) | payer OTHER ==
[2025-06-09 09:37] LABS: Alanine Aminotransferase 18 U/L (7-40); Alkaline Phosphatase 79 U/L (46-116); Anion Gap 9 (5-15); BUN/Creatinine Ratio 22.7 (10.0-20.0); Blood Urea Nitrogen 20 mg/dL (9-23); Calcium 9.9 mg/dL (8.7-10.4); Carbon Dioxide 25 mmol/L (20-31); Chloride 109 mmol/L (98-107); Glucose 106 mg/dL (74-106); Potassium 5.1 mmol/L (3.5-5.1); Sodium 143 mmol/L (136-145); Total Protein 7.6 g/dL (5.7-8.2); Triglycerides 107 mg/dL (< 150)
[2025-06-09 09:39] LABS: Bilirubin, Total 0.9 mg/dL (0.2-1.0); Cholesterol 190 mg/dL (< 200)
[2025-06-09 09:40] LABS: Albumin 5.0 g/dL (3.2-4.8); HDL Cholesterol 62 mg/dL (40-59)
== END 2025-06-09 17:00 | disposition home or self-care (01) ==
LOC: LAB 07:53
PROVIDERS: ATTEND Family Medicine
DX: I12.9 Hypertensive chronic kidney disease with stage 1 through stage 4 chronic kidney disease, or unspecified chronic kidney disease (principal); N18.2 Chronic kidney disease, stage 2 (mild); E88.89 Other specified metabolic disorders; E78.5 Hyperlipidemia, unspecified; R73.09 Other abnormal glucose
CPT/HCPCS: 36415; 80053; 80061; 82043; 83036

== ENCOUNTER → 2025-08-03 | Outpatient (CLI) | payer OTHER ==
[2025-08-03 12:16] LABS: Alanine Aminotransferase 19 U/L (7-40); Alkaline Phosphatase 78 U/L (46-116); Anion Gap 10 (5-15); Calcium 9.4 mg/dL (8.7-10.4); Carbon Dioxide 24 mmol/L (20-31); Glucose 99 mg/dL (74-106); Potassium 4.5 mmol/L (3.5-5.1); Sodium 142 mmol/L (136-145); Total Protein 7.2 g/dL (5.7-8.2); Triglycerides 98 mg/dL (< 150)
[2025-08-03 12:17] LABS: Albumin 4.6 g/dL (3.2-4.8)
[2025-08-03 12:18] LABS: Bilirubin, Total 1.0 mg/dL (0.2-1.0); Cholesterol 189 mg/dL (< 200)
[2025-08-03 12:28] LABS: Microalb/Creat Ratio, Urine 5.0
[2025-08-03 12:36] LABS: Chloride 108 mmol/L (98-107)
[2025-08-03 12:37] LABS: HDL Cholesterol 62 mg/dL (40-59)
[2025-08-03 15:45] LABS: BUN/Creatinine Ratio 22.8 (10.0-20.0); Blood Urea Nitrogen 21 mg/dL (9-23)
== END | disposition home or self-care (01) ==
LOC: LAB 09:34
PROVIDERS: ATTEND Family Medicine
DX: E87.5 Hyperkalemia (principal)
CPT/HCPCS: 36415; 80053; 80061; 82043; 82570

== ENCOUNTER 2025-09-18 09:13 | Emergency (ER) | payer OTHER ==
[~2025-09-18] VITALS: Ht 157.5 cm; Wt 64.0 kg
--- NOTE | 2025-09-18 10:33 | ED.PDOC ---
Musculoskeletal HPI Comments This is a 75 year old female BIB grandson presenting to the ED with chief complaint of left knee pain. Patient reports that she has been experiencing left sided knee pain since yesterday with associated mild swelling. Patient reports that her pain comes on suddenly and makes her leg give out, needing to hold onto things not to fall. Patient states she has history of arthritis to her bilateral knees, but is able to ambulate on her own. Patient denies any numbness, weakness, redness, severe swelling, chest pain, or SOB. Chief Complaint: Lower Extremity Time Seen by MD: 10:25 Primary Care Provider: UNKNOWN Reviewed Notes: Nurses Notes, Medications, Allergies Allergies: Coded Allergies: Codeine (Verified Allergy, Unknown, 07/28/24) Home Meds Reported Medications Lisinopril (Lisinopril) Unknown Strength Tab, PO DAILY, TAB 08/18/24 Information Source: Patient Mode of Arrival: Wheelchair Location: Left Extremity Location: Knee Timing: Days Prehospital treatment: None Severity: Moderate Able to Move Extremity: Yes Bear Weight: Limited Pain: Moderate Mechanism: Spontaneous Circumstances: Arthritis, Spontaneous Onset of Symptoms: Spontaneous Symptoms: Pain DVT Risk Factors: NONE Last Tetanus: Unknown Past Medical History PAST MEDICAL HISTORY: Arthritis, HTN Surgical History: Hysterectomy 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 Family History Family History: Unknown Social History Smoker: Non-Smoker Alcohol: Denies ETOH Use Drugs: Denies Drug Use Lives In: Home Constitutional: denies: chills, diaphoresis, fatigue, fever, malaise, sweats, weakness, others EENTM: denies: blurred vision, double vision, ear bleeding, ear discharge, ear drainage, ear pain, ear ringing, eye pain, eye redness, hearing loss, mouth pain, mouth swelling, nasal discharge, nose bleeding, nose congestion, nose pain, photophobia, tearing, throat pain, throat swelling, voice changes, others Respiratory: denies: cough, hemoptysis, orthopnea, SOB at rest, shortness of breath, SOB with excertion, stridor, wheezing, others Cardiovascular: denies: chest pain, dizzy spells, diaphoresis, Dyspnea on exertion, edema, irregular heart beat, left arm pain, lightheadedness, palpitations, PND, syncope, others Gastrointestinal: denies: abdomen distended, abdominal pain, blood streaked bowels, constipated, diarrhea, dysphagia, difficulty swallowing, hematemesis, melena, nausea, poor appetite, poor fluid intake, rectal bleeding, rectal pain, vomiting, others Genitourinary: denies: abnormal vagina bleeding, burning, dyspareunia, dysuria, flank pain, frequency, hematuria, incontinence, pain, , vagina discharge, urgency, others Neurological: denies: dizziness, fainting, headache, left sided numbness, left sided weakness, numbness, paresthesia, pre-existing deficit, right sided numbness, right sided weakness, seizure, speech problems, tingling, tremors, weakness, others Musculoskeletal: reports: others (Left knee pain); denies: back pain, gout, joint pain, joint swelling, muscle pain, muscle stiffness, neck pain Integumetry: denies: bruises, change in color, change in hair/nails, dryness, laceration, lesions, lumps, rash, wounds, others Allergic/Immunocompromised: denies: Difficulty Healing, Frequent Infections, Hives, Itching, others Hematologic/Lymphatic: denies: anemia, blood clots, easy bleeding, easy bruising, swollen glands, others Endocrine: denies: excessive hunger, excessive sweating, excessive thirst, excessive urination, flushing, intolerance to cold, intolerance to heat, unexplained weight gain, unexplained weight loss, others Psychiatric: denies: anxiety, bipolar disorder, depression, hopeless, panic disorder, schizophrenia, sleepless, suicidal, others All Other Systems: Reviewed and Negative Physical Exam General Appearance: No Apparent Distress, Normal HEENT: Normal ENT Inspection, Pharynx Normal, TMs Normal Neck: Full Range of Motion, Non-Tender, Normal, Normal Inspection Respiratory: Chest Non-Tender, Lungs Clear, No Accessory Muscle Use, No Respiratory Distress, Normal Breath Sounds Cardiovascular: No Edema, No JVD, No Murmur, No Gallop, Normal Peripheral Pulses, Regular Rate/Rhythm Breast Exam: Deferred Gastrointestinal: No Organomegaly, Non Tender, No Pulsatile Mass, Normal Bowel Sounds, Soft Genitalia: Deferred Pelvic: Deferred Rectal: Deferred Extremities: No calf tenderness, Normal capillary refill, Normal inspection, Normal range of motion, Non-tender, No pedal edema Musculoskeletal : Location: Left Extremity Location: Knee Apperance: Normal, Tenderness Neurologic: Alert, master cosmetologist II-XII nml as Tested, No Motor Deficits, Normal Affect, Normal Mood, No Sensory Deficits Cerebellar Function: Normal Reflexes: Normal Skin: Dry, Normal Color, Warm Lymphatic: No Adenopathy Was a procedure done? Was a procedure done?: No Differential Diagnosis EXT Differential Diagnosis: Deep Vein Thrombosis, Fracture, Sprain, Contusion, Strain, Arthritis X-Ray, Labs, Meds, VS Vital Signs Date Time Temp Pulse Resp B/P (MAP) Pulse Ox O2 Delivery O2 Flow Rate FiO2 09/18/25 09:15 97.6 71 18 136/90 99 97.6 [place] [address] Ph: [phone] DIAGNOSTIC IMAGING Diagnostic Imaging Report : [id number] Signed PATIENT: DAFNE ARCE ACCT: [id number] UNIT: [id number] : 1950 LOC: ER ROOM / BED: / AGE / SEX: 75 / F ADM STATUS: REG ER SERVICE 1011 ORDERING PHYSICIAN: AXEL COLEMAN MD PROCEDURE(s): LLDVT - LT Lower DVT REASON: left knee pain ORDER NUMBER(s): [id number], ACCESSION NUMBER(s): [id number] Lower DVT HISTORY: left knee pain COMPARISON: None TECHNIQUE: Duplex doppler evaluation of the deep venous system of the lower extremity from the common femoral veins, superficial femoral vein, great saphen ous vein, deep femoral vein, popliteal vein, and calf veins, including color doppler and spectral/pulsed waveform analysis, was performed. FINDINGS: Left: - Common femoral vein: Compressible - Deep femoral vein: Compressible - Femoral vein: Compressible - Popliteal vein: Compressible - Other: Nothing IMPRESSION: No left lower extremity deep venous thrombosis. ATED BY: ANASTACIO PÉREZ MD DICTATED DATE/TIME: 09/18/251057 SIGNED BY: ANASTACIO PÉREZ MD SIGNED DATE/TIME: 09/18/251057 CC: [address] [address] Ph: [phone] DIAGNOSTIC IMAGING Diagnostic Imaging Report : [id number] Signed PATIENT: DAFNE ARCE ACCT: [id number] UNIT: [id number] : 1950 LOC: ER ROOM / BED: / AGE / SEX: 75 / F ADM STATUS: REG ER SERVICE 1011 ORDERING PHYSICIAN: AXEL COLEMAN MD PROCEDURE(s): LKNE3 - L KNEE 3V XRAY REASON: left knee pain ORDER NUMBER(s): [id number], ACCESSION NUMBER(s): [id number] XY L KNEE 3V XRAY, INDICATION: left knee pain TECHNICAL DATA: Frontal , oblique and lateral views were obtained of the left knee. COMPARISON: None FINDINGS: No fracture is identified. Medial, lateral and patellofemoral compartment joint spaces are degenerative. Alignment is anatomic. Soft tissues are within normal limits. No joint effusion is demonstrated. IMPRESSION: No acute fracture or dislocation of the left knee. ATED BY: ANASTACIO PÉREZ MD DICTATED DATE/TIME: 09/18/25 1057 SIGNED BY: ANASTACIO PÉREZ MD SIGNED DATE/TIME: 09/18/25 1057 CC: Time of 1ST Reevaluation: 11:25 Reevaluation 1ST: Unchanged Patient Education/Counseling: Diagnosis, Treatment Family Education/Counseling: Diagnosis, Treatment Departure 1 Departure Time of Disposition: 11:25 (Patient's workup is benign. Patient likely with wo rsening arthritis of her left knee. We will discharge patient home with outpatient follow up) Impression: Primary Impression: Arthritis of left knee Additional Impression: Left knee pain Disposition: HOME / SELF CARE / HOMELESS Condition: Stable Referrals: GRADY CUI MD Additional Instructions: Your x-ray was concerning for arthritis. Your ultrasound was negative for a blood clot. You were referred to orthopedics for further evaluation of the arthritis of your left knee. For pain you can take the followinam: Ibuprofen 400mg with food Noon: Acetaminophen 1000mg 4pm: Ibuprofen 400mg with food 8pm: Acetaminophen 1000mg You should follow up with your regular doctor within one week to ensure you are doing better. If your symptoms worsen or you have any other concerns then please return to the ER. Discharged With: Self Critical Care Note Critical Care Time?: No Stability Stability form required: No Heart Score Heart Score: Heart Score Response (Comments) Value History N/A 0 EKG N/A 0 Age N/A 0 Risk Factors N/A 0 Troponin N/A 0 Total 0 I personally scribed for AXEL COLEMAN MD ([email or web address]) on 09/18/25 at 10:33. Electronically submitted by Davian Bean ([email or web address]). I personally scribed for AXEL COLEMAN MD ([email or web address]) on 09/18/25 at 11:19. Electronically submitted by Davian Bean ([email or web address]). AXEL COLEMAN MD Sep 18, 2025 10:33
--- NOTE | 2025-09-18 10:59 | DVH ---
XY L KNEE 3V XRAY, INDICATION: left knee pain TECHNICAL DATA: Frontal , oblique and lateral views were obtained of the left knee. COMPARISON: None FINDINGS: No fracture is identified. Medial, lateral and patellofemoral compartment joint spaces are degenerative. Alignment is anatomic. Soft tissues are within normal limits. No joint effusion is demonstrated. IMPRESSION: No acute fracture or dislocation of the left knee.
--- NOTE | 2025-09-18 11:01 | DVH ---
US LT Lower DVT HISTORY: left knee pain COMPARISON: None TECHNIQUE: Duplex doppler evaluation of the deep venous system of the lower extremity from the common femoral veins, superficial femoral vein, great saphenous vein, deep femoral vein, popliteal vein, and calf veins, including color doppler and spectral/pulsed waveform analysis, was performed. FINDINGS: Left: - Common femoral vein: Compressible - Deep femoral vein: Compressible - Femoral vein: Compressible - Popliteal vein: Compressible - Other: Nothing IMPRESSION: No left lower extremity deep venous thrombosis.
[2025-09-18 11:55] VITALS: BP 142/68; PULSE 66; RESP 16; TEMP 97.7; O2SAT 99
== END 2025-09-18 12:00 | disposition home or self-care (01) ==
LOC: ER 09:13
DX: M17.12 Unilateral primary osteoarthritis, left knee (principal); M25.562 Pain in left knee; I10 Essential (primary) hypertension; Z90.710 Acquired absence of both cervix and uterus; Z88.5 Allergy status to narcotic agent; Z79.899 Other long term (current) drug therapy
CPT/HCPCS: 73562; 93971